=== PATIENT | born 1975 | race Asian ===

== ENCOUNTER → 2020-11-18 12:07 | Outpatient (CLI) | payer OTHER, SELFPAY ==
[2020-11-18] MEDS: COVID-19 VACC #1, MRNA(MOD) 100 MCG/0.5 ML VIAL IM (12:17)
== END ==
PROVIDERS: Visit Provider Internal Medicine
DX: Z23 Encounter for immunization (principal)
CPT/HCPCS: 0011A; 91301

== ENCOUNTER → 2020-12-16 12:01 | Outpatient (CLI) | payer OTHER, SELFPAY ==
[2020-12-16] MEDS: COVID-19 VACC #2, MRNA(MOD) 100 MCG/0.5 ML VIAL IM (12:09)
== END ==
PROVIDERS: Visit Provider Internal Medicine
DX: Z23 Encounter for immunization (principal)
CPT/HCPCS: 0012A; 91301